=== PATIENT | female | born 1955 | race Caucasian/White ===

== ENCOUNTER → 2018-01-29 | Outpatient (CLI) | payer BC | END | disposition home or self-care (01) | LOC: CFH 08:14 | PROVIDERS: ATTEND Family Medicine | DX: M75.51 Bursitis of right shoulder (principal); M13.811 Other specified arthritis, right shoulder ==

== ENCOUNTER 2018-09-10 08:44 | Outpatient (CLI) | payer BC | END 2018-09-10 23:59 | disposition home or self-care (01) | LOC: CFH 08:44 | PROVIDERS: ATTEND Family Medicine | DX: Z12.31 Encounter for screening mammogram for malignant neoplasm of breast (principal); M85.89 Other specified disorders of bone density and structure, multiple sites; N95.9 Unspecified menopausal and perimenopausal disorder | CPT/HCPCS: 77063; 77067; 77080 ==